=== PATIENT | male | born 1975 | race African-American/Black ===

== ENCOUNTER 2022-11-08 00:36 | Day surgery (SDC) | payer BC, SELFPAY ==
[2022-10-25 13:23] VITALS: BMI 23.8
[2022-11-08 09:30] VITALS: BP 135/79; PULSE 95; RESP 18; TEMP 36.2; O2SAT 100; BMI 24.2
--- NOTE | 2022-11-08 09:43 | WPDANESEPPF ---
Anes - Initial Pre Proc Eval Procedure: Operation Date: 11/08/22 10:00 Proposed Procedures p Esophagogastroduodenoscopy & Colonoscopy - Pb Arellano MD Date/Time: 11/08/22 09:43 Surgeon: Pb Arellano MD Pre Op Diagnosis: GERD, nausea, abnormal weightloss, abdom.pain Patient Data Age: 47 Gender: M Height: 1.73 m Weight: 72.2 kg Last Vital Signs Temp 36.2 C L 11/08/22 09:30 Pulse 95 11/08/22 09:30 Resp 18 11/08/22 09:30 BP 135/79 11/08/22 09:30 Pulse Ox 100 11/08/22 09:30 O2 Del Method Room Air 11/08/22 09:30 Allergies Allergy/AdvReac Type Severity Reaction Status Date / Time No Known Allergies Allergy Verified 11/13/22 08:50 Home Medications Medication Instructions Recorded Confirmed Type cholecalciferol (vitamin D3) 50 50 mcg PO DAILY 09/25/22 11/13/22 History mcg (2,000 unit) tablet fluticasone propionate 50 2 spray intranasal DAILY #16 grams 09/25/22 11/13/22 Rx mcg/actuation nasal spray,suspension (Children's Flonase Allergy Relief) triamcinolone acetonide 0.5 % 1 applic topical BID 10/25/22 11/13/22 History topical cream (Triderm) Patient hx anesthesia problems: none Family hx anesthesia problems: none Results Review: All pre-operative results and documents have been reviewed as part of the pre-operative evaluation. [facility] Past Medical History Medical History Abnormal weight loss Dyslipidemia Generalized abdominal pain GERD (gastroesophageal reflux disease) Microcytosis Nausea Vitamin D deficiency Family History Family History Father Diabetes mellitus Social History Social History Smoking status: Never smoker Alcohol intake: never Substance use: never Substance use type: does not use Lack of Transportation: No Lack of Food: Never True Current Housing: I Have Housing Concerned About Future Housing: No Difficulty Paying Gas/Electric Bills: No Difficulty Paying for Meds: No Currently Unemployed: No Education: Master's Degree or Higher Difficulty w/ Childcare or Family Care: No Living arrangements: with family Occupation/Education: occupation Gender identity (if verbalized by the patient): Male Sexual Orientation (if Verbalized by the Patient): Straight or Heterosexual Spiritual care concerns: No Agree to blood products: Yes Anes - Eval Final PreProcedure Day of Procedure 11/08/22 09:43 Patient weight: normal Heart: regular rate and rhythm Lungs: clear to auscultation and normal air movement Airway: Mallampati scale class II Neurological: alert and oriented Last oral intake: >/= 8 hours ASA classification: II Emergent: no Anesthetic plan: proceed Anesthesia type and monitoring: general GIVS and standard monitoring Results Review: All pre-operative results and documents have been reviewed as part of the pre-operative evaluation. Informed Consent: The patient's anesthetic plan and its attendant risks and benefits were discussed with the patient/family/POA. Questions were solicited and answers provided to the satisfaction of the patient/family/POA.
[2022-11-08] MEDS: LACTATED RINGERS 1,000 ML 150 ML IV CONT (09:52)
--- NOTE | 2022-11-08 09:59 | WPDHPUPDATE1 ---
History and Physical Update Update Date/Time: 11/08/22 09:59 History and Physical has been reviewed, including an updated exam of the patient. There are NO changes in the patient's condition. Risks, benefits, and alternatives have been discussed and questions answered. Patient agrees to proceed with procedure.
--- NOTE | 2022-11-08 10:44 | SUR.OPER ---
EGD ended 103 colonoscopy started 1042
[2022-11-08 11:03] VITALS: BP 101/66; PULSE 81; RESP 17; O2SAT 100
[2022-11-08 11:13] VITALS: BP 98/68; PULSE 75; RESP 20; O2SAT 99
[2022-11-08 11:23] VITALS: BP 112/79; PULSE 73; RESP 15; O2SAT 100
== END 2022-11-08 11:34 | disposition home or self-care (01) ==
PROVIDERS: PCP Family Medicine; Visit Provider Internal Medicine Gastroenterology
PROC: 0DJ08ZZ Inspection of Upper Intestinal Tract, Via Natural or Artificial Opening Endoscopic (ICD-10-PCS; CPT 43235; principal; 2022-11-08 10:00)
DX: Z12.11 Encounter for screening for malignant neoplasm of colon (principal); R10.84 Generalized abdominal pain; R11.0 Nausea; K21.9 Gastro-esophageal reflux disease without esophagitis; E55.9 Vitamin D deficiency, unspecified
CPT/HCPCS: 45378; 43239; 87081; 88305; J2704; J7120

== ENCOUNTER 2024-06-25 12:41 | Outpatient (CLI) | payer BC, SELFPAY ==
--- NOTE | ~2024-06-25 | CT_ITS ---
CT of the Abdomen and Pelvis: Indication: Abdominal pain Technique: 2.5 mm axial scans were obtained through the abdomen and pelvis following intravenous adm inistration of 100 cc of Omnipaque 350. Dose reduction technique was used on this scan by utilizing a utomated exposure control and iterative reconstruction technique. The dose-length product (DLP) was 3 56.42 mGy-cm. Findings: Scans through the lung bases demonstrate calcified left lower lobe pulmonary nodule. The liver, spleen, pancreas, gallbladder, adrenals and kidneys are within normal limits. No evidence of aortic aneurysm. No lymphadenopathy. No bowel obstruction or bowel wall thickening. There is no evidence to suggest acute appendicitis. Images through the pelvis were performed. Urinary bladder unremarkable. Prostate gland is enlarged. N o ascites. Impression: No acute abnormality. Enlarged prostate gland. Reviewed, dictated and finalized at location . [facility] Impression: No acute abnormality. Enlarged prostate gland.
== END 2024-06-25 12:42 | disposition home or self-care (01) ==
LOC: MICIMG 12:42
PROVIDERS: PCP Nurse Practitioner; Visit Provider Nurse Practitioner
DX: N40.0 Benign prostatic hyperplasia without lower urinary tract symptoms (principal); E73.9 Lactose intolerance, unspecified
CPT/HCPCS: 74177; Q9967